=== PATIENT | female | born 1965 | race Caucasian/White ===

== ENCOUNTER 2017-07-10 12:28 | Emergency (ER) | payer OTHER, MEDICAID ==
[~2017-07-10] VITALS: Ht 160 cm; Wt 50.8 kg
[~2017-07-10 12:28] MED LIST: ACETAMINOPHEN-1 EAC1 PO; AFRIN15 ML NS; BENTYL20 MG PO; CLEOCIN HCL300 MG PO; CLONAZEPAM 0.50.5 M1 PO; CLONAZEPAM 1 MG1 M1 PO; CYCLOBENZAPRINE5 MG PO; DICLOFENAC SODI75 MG PO; DOLOPHINE HCL5 MG PO; FLEXERIL PO; HYDROCODON-ACE1 EAC7 PO; HYDROCODONE-AP1 EAC6 PO; IBUPROFEN 200200 M1 PO; LYRICA 75 MG CA75 MG PO; MEDROLDOSEPACK PO; MIRALAX17 GM PO; NAPROSYN500 MG; NAPROSYN500 MG PO; NEURONTIN 300300 M1 PO; NORCO 10-325 T1 EACH PO; NORCO 5-325 TA1 EAC1 PO; NORCO 5-325 TA1 EACH PO; PREDNISONE 20 M20 M1 PO; ROBAXIN 750 MG750 M1 PO; ROBAXIN500 MG PO; TESSALON PERLE100 MG PO; TOPROL XL25 MG PO; VENTOLIN HFA 1818 GM INH; VOLTAREN100 GM TP; ZOFRAN4 MG PO; ZPAK PO
[2017-07-10] MEDS ORDERED: NORCO 5-325 TA1 EACH PO (13:29)
[2017-07-10 13:48] VITALS: BP 119/78
== END 2017-07-10 13:50 | disposition home or self-care (01) ==
LOC: M.ERS 12:28
DX: S46.912A Strain of unspecified muscle, fascia and tendon at shoulder and upper arm level, left arm, initial encounter (principal); F17.210 Nicotine dependence, cigarettes, uncomplicated; Z91.041 Radiographic dye allergy status; Z88.1 Allergy status to other antibiotic agents; Z88.0 Allergy status to penicillin; Z88.2 Allergy status to sulfonamides; Z88.8 Allergy status to other drugs, medicaments and biological substances; Z90.710 Acquired absence of both cervix and uterus; Z86.14 Personal history of Methicillin resistant Staphylococcus aureus infection; X58.XXXA Exposure to other specified factors, initial encounter; Y93.89 Activity, other specified; Y92.89 Other specified places as the place of occurrence of the external cause; Y99.8 Other external cause status

== ENCOUNTER → 2020-06-17 | Outpatient (CLI) | payer OTHER ==
[~2020-06-17] MED LIST changes: +ADVIL200 M1 PO; +HYDROCODON-ACE1 EAC8 PO; +NEURONTIN100 MG PO; +XANAX 0.5 MG0.5 M1 PO
== END ==
LOC: M.LAB 16:43
PROVIDERS: ATTEND Student in an Organized Health Care Education/Training Program
DX: M75.101 Unspecified rotator cuff tear or rupture of right shoulder, not specified as traumatic (principal); Z20.828 Contact with and (suspected) exposure to other viral communicable diseases

== ENCOUNTER → 2020-06-23 | Day surgery (SDC) | payer OTHER ==
[~2020-06-23] MED LIST changes: +ASA81BEC PO; +ROXICODONE5 MG PO
--- NOTE | ~2020-06-23 | OP ---
[address] [address] OPERATIVE REPORT Name: RAFI PIERCE Room: [facility].#: [id number] Admission: 06/23/20 Attend Phys: Errol Posada DO Discharge: Date of : 69 Report #: [id number] THIS REPORT FOR: cc: Lyn Montenegro Christine L. DO ~ Errol Posada DO DATE OF SERVICE: 06/23/2020 PREOPERATIVE DIAGNOSIS: Right shoulder supraspinatus tear. POSTOPERATIVE DIAGNOSES: Right shoulder supraspinatus tear, full thickness, right shoulder SLAP tear, degenerative, with instability of biceps anchor. PROCEDURE PERFORMED: Right shoulder arthroscopy with rotator cuff repair and biceps tenodesis. SURGEON: Errol Posada DO ASSISTANTS: 1. Jonathan Figueroa DO 2. Evan Dominique DO ANESTHESIA: General interscalene block. ANTIBIOTICS: Ancef IV. INTRAVENOUS FLUIDS: 1000 mL lactated Ringer's. ESTIMATED BLOOD LOSS: 5 mL. COMPLICATIONS: None. SPECIMENS: None. DRAINS: None. CONDITION: The patient is stable to PACU. IMPLANTS: Arthrex 3.5 PushLock for biceps tenodesis, 4.75 SwiveLock part of SpeedFix kit for rotator cuff repair. INDICATIONS FOR PROCEDURE: Rotator cuff tear, full thickness. Reviewed MRI findings, treatment options, plan of surgery, risks and complications. She acknowledged, accepted and gave consent to proceed. [address] [address] OPERATIVE REPORT Name: RAFI PIERCE Room: [facility].#: [id number] Admission: 06/23/20 Attend Phys: Errol Posada DO Discharge: Date of : 69 Report #: [id number] DESCRIPTION OF PROCEDURE: I marked the right upper extremity in the presence of operative team members. Everyone agreed correct. She was taken back to the operative suite, placed on the table supine, well-padded and secured. General anesthetic administered. She was placed into the beach chair position, well-padded and secured appropriately. Right upper extremity was sterilely prepped and draped in a standard fashion. Timeout performed indicating correct patient, procedure, site, antibiotics and that implants were present and sterile. All team members agreed. Marked out shoulder began posteriorly. Scalpel through skin, trocar, then camera introduced and the glenohumeral joint was insufflated with normal saline at 35 mmHg. Localized the anterior portal with a spinal needle, scalpel and then a probe introduced. Significant degenerative SLAP tear with instability of the biceps anchor and tearing along that insertion. 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 Rotator cuffs were intact with the exception of the supraspinatus, which at the anterior footprint had a full thickness tear. We tagged that with a Prolene suture coming from subacromial. For the biceps with the instability, we then did perform our tenodesis Loop 'N' Tack style. We worked through that anterior portal, passed our loop intact and then anchored it distally to secure the suture within the tendon, cut the tendon at its anchor appropriately. We then placed a punch in the appropriate position high within the groove and placed our 3.5 PushLock with the sutures appropriately tensioned. Saved those final images, removed fluid, went into the subacromial space, performed bursectomy with a laterally based portal. We were able to find a full thickness aspect of the tear with the help of our previous Prolene, removed the Prolene, decorticated the bone to help with tendon healing. We then passed a FiberTape suture in a horizontal mattress fashion. This laid over nicely under no undue tension. We prepped out laterally for an anchor, punched for our anchor, sutures passed through the eyelet, dunked the anchor and it screwed in, had appropriate purchase, laid down very nicely, again not under any excess tension. No dog earring. Cut excess suture. Final images taken. Drained fluid. Closed all incisions with 3-0 nylon. Debriefing performed confirming procedure, blood loss and that all counts were correct and final. All team members agreed. Sterile dressings of Xeroform gauze, 4 x 4's, ABD tape applied. She was placed into a slingshot sling, extubated and taken to PACU stable. POSTOPERATIVE COURSE AND EVALUATION: I spoke with her , went over surgical images with them, gave them a copy to take home and I asked that they bring back at her postoperative visit. He was thankful for my time and efforts. She was resting in PACU with stable vital signs, pain controlled. She had a good vascular exam in that extremity. Neurologically, she still had the block in place. Compartments were soft and compressible. Nonweightbearing motion encouraged at the elbow and distal; otherwise, stay in sling. Aspirin 81 mg for [facility] [address] [place] [address] OPERATIVE REPORT Name: RAFI PIERCE Room: [facility]#: [id number] Admission: 06/23/20 Attend Phys: Errol Posada DO Discharge: Date of : 69 Report #: [id number] DVT prophylaxis, pain medication to be taken as directed. Follow up in 2 weeks, sooner if need be. COVID protocol followed at all times. By: [id number] Posada DO /nt
[2020-06-23 11:40] LABS: ABSOLUTE BASOPHILS 0.2 thou/uL (0.0-0.2); ABSOLUTE EOSINOPHILS 0.1 thou/uL (0.0-0.7); ABSOLUTE LYMPHOCYTES 2.1 thou/uL (0.8-5.3); ABSOLUTE MONOCYTES 0.4 thou/uL (0.0-1.2); ABSOLUTE NEUTROPHILS 7.6 thou/uL (1.6-8.1); BASOPHILS 1.5 %; EOSINOPHILS 1.3 %; HEMATOCRIT 37.6 % (37.0-47.0); HEMOGLOBIN 12.9 gm/dL (12.0-15.0); LYMPHOCYTES 20.5 %; MCHC 34.3 g/dL (28.0-37.0); MCV 99.1 fL (80.0-100.0); MONOCYTES 4.2 %; MPV 7.9 fl. (7.2-11.1); NUCLEATED RBCS 0 /100WBC; PLATELET COUNT* 295 thou/uL (150-400); POLYS 72.5 %; RBC 3.79 mil/uL (4.20-5.00); RDW-CV 14.1 % (10.5-14.5); WBC 10.4 thou/uL (4.0-11.0)
[2020-06-23 11:50] LABS: PROTIME 10.3 Seconds (9.20-11.50)
[2020-06-23 12:01] LABS: CALCIUM 8.5 mg/dL (8.5-10.1); CREATININE 0.7 mg/dL (0.6-1.3); POTASSIUM 3.7 mmol/L (3.5-5.1)
[2020-06-23 12:06] LABS: ALBUMIN 3.3 g/dL (3.4-5.0); TOTAL BILIRUBIN 0.3 mg/dL (<0.1-1.0); TOTAL PROTEIN 6.7 g/dL (6.4-8.2)
[2020-06-23 12:45] LABS: ESR (SEDRATE) 30 mm/hr (0-30)
--- NOTE | 2020-06-23 15:17 | EKG ---
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1965 Requested By: Errol Posada Order Number: [id number] [id number] MD: Maverick Ayala Measurements Intervals [place] Rate: 77 P: 64 ND: 144 QRS: 16 QRSD: 99 T: 41 QT: 364 QTc: 412 Interpretive Statements Sinus rhythm RSR' in V1 or V2, right VCD Baseline wander in lead(s) V1 No previous ECG available for comparison Electronically Signed On 06-23-2020 15:16:50 NIGHT ORDER SELECTOR by Maverick Ayala [email or web address] <ELECTRONICALLY SIGNED> By: Maverick Ayala MD, [facility] 06/23/20 1516 1126 1126 Maverick Ayala MD, [facility] /EPI
== END | disposition home or self-care (01) ==
LOC: M.SUR 08:44
PROVIDERS: ATTEND Orthopaedic Surgery
DX: M75.121 Complete rotator cuff tear or rupture of right shoulder, not specified as traumatic (principal); M25.311 Other instability, right shoulder; S43.431A Superior glenoid labrum lesion of right shoulder, initial encounter; I10 Essential (primary) hypertension; F17.210 Nicotine dependence, cigarettes, uncomplicated; Z98.890 Other specified postprocedural states; Z79.899 Other long term (current) drug therapy; Z88.0 Allergy status to penicillin; Z88.2 Allergy status to sulfonamides; Z91.041 Radiographic dye allergy status; X58.XXXA Exposure to other specified factors, initial encounter; Y93.89 Activity, other specified; Y92.89 Other specified places as the place of occurrence of the external cause; Y99.8 Other external cause status

== ENCOUNTER 2020-08-23 14:40 | Emergency (ER) | payer OTHER ==
[~2020-08-23] VITALS: Ht 157.5 cm; Wt 54.4 kg
[2020-08-23] MEDS ORDERED: REMERON15 M2 PO (14:52)
[2020-08-23] MEDS ORDERED: VALIUM10 MG PO (14:52)
[2020-08-23 15:54] VITALS: BP 131/79
== END 2020-08-23 15:54 | disposition home or self-care (01) ==
LOC: M.ERS 14:40
DX: M25.511 Pain in right shoulder (principal); F17.210 Nicotine dependence, cigarettes, uncomplicated; Z88.0 Allergy status to penicillin; Z91.041 Radiographic dye allergy status; Z88.2 Allergy status to sulfonamides; Z88.1 Allergy status to other antibiotic agents; Z88.6 Allergy status to analgesic agent; Z90.710 Acquired absence of both cervix and uterus; Z86.14 Personal history of Methicillin resistant Staphylococcus aureus infection